=== PATIENT | male | born 2005 | race African-American/Black ===

== ENCOUNTER 2024-08-05 13:55 | Emergency (ER) | payer OTHER ==
[~2024-08-05] VITALS: Ht 188 cm; Wt 81.5 kg
[2024-08-05] MEDS: KETOROLAC 60MG 2ML VIAL IM ONE (19:25)
[2024-08-05 20:50] VITALS: BP 114/58; TEMP 97.3; O2SAT 98
== END 2024-08-05 21:00 | disposition home or self-care (01) ==
LOC: M ED 13:55
DX: S83.92XA Sprain of unspecified site of left knee, initial encounter (principal); X50.0XXA Overexertion from strenuous movement or load, initial encounter; F17.200 Nicotine dependence, unspecified, uncomplicated; F10.10 Alcohol abuse, uncomplicated; Y92.9 Unspecified place or not applicable; Y93.67 Activity, basketball; Y99.9 Unspecified external cause status
CPT/HCPCS: 73564; 96372; 99284; J1885